=== PATIENT | female | born 1960 | race Caucasian/White ===

== ENCOUNTER 2020-06-14 22:23 | Emergency (ER) | payer OTHER ==
[~2020-06-14] VITALS: Ht 175.3 cm; Wt 121.1 kg
[2020-06-14 22:41] VITALS: BP_SYST 135
[2020-06-14] MEDS ORDERED: INSULIN REGULAR, HUMAN 10 UNITS/0.1 ML INJ IVP ONE (23:00)
[2020-06-14 23:18] LABS: BASOPHILS % (AUTO) 0.7 % (0.0-2.0); EOSINOPHILS # (AUTO) 0.1 K/uL (0.0-0.4); EOSINOPHILS % (AUTO) 1.7 % (0.0-4.0); HEMOGLOBIN 11.1 g/dL (12.0-16.0); LYMPHOCYTES # (AUTO) 0.7 K/uL (1.0-5.5); MEAN CORPUSCULAR HEMOGLOBIN 28 pg (27-31); MEAN CORPUSCULAR HGB CONC 32 % (32-36); MEAN CORPUSCULAR VOLUME 87 fL (79.0-98.0); MONOCYTES # (AUTO) 0.3 K/uL (0.0-1.0); MONOCYTES % (AUTO) 6.7 % (1.7-9.3); NEUTROPHILS # (AUTO) 3.2 K/uL (1.8-7.7); NEUTROPHILS % (AUTO) 73.9 % (40.0-70.0); PLATELET COUNT (AUTO) 88 K/uL (130-430); RED BLOOD CELL COUNT(AUTO) 4.05 MIL/uL (4.2-6.2); RED CELL DISTRIBUTION WIDTH 16.8 % (9.0-15.0); WHITE BLOOD COUNT (AUTO) 4.3 K/uL (4.8-10.8)
[2020-06-14 23:42] LABS: ALBUMIN 2.9 g/dL (3.4-4.8); CREATININE 1.89 mg/dL (0.55-1.30); POTASSIUM 4.4 mmol/L (3.5-5.1); TOTAL BILIRUBIN 0.5 mg/dL (0.0-1.0)
[2020-06-14 23:48] LABS: CALCIUM 13.8 mg/dL (8.4-11.0)
[2020-06-15] MEDS ORDERED: TOP25 PO (00:09)
[2020-06-15] MEDS ORDERED: FURO-150 PO (00:12)
[2020-06-15] MEDS ORDERED: METO25TA6 PO (00:12)
[2020-06-15] MEDS ORDERED: QUET50TA PO (00:12)
[2020-06-15] MEDS ORDERED: INSU100V7 SUBCUT ×2 (00:23→00:24)
[2020-06-15] MEDS ORDERED: HYDR-3698 PO (00:23)
[2020-06-15] MEDS ORDERED: ROSU10TA2 PO (00:23)
[2020-06-15] MEDS ORDERED: ASPI-1155 PO (00:23)
[2020-06-15] MEDS ORDERED: SYN50 PO (00:23)
[2020-06-15] MEDS ORDERED: SERT25TA PO (00:23)
[2020-06-15] MEDS ORDERED: CYAN250014 PO (00:23)
[2020-06-15] MEDS ORDERED: DIVA-74 PO (00:23)
[2020-06-15] MEDS ORDERED: TRAM50TA2 PO (00:23)
[2020-06-15] MEDS ORDERED: INSU500I SQ (00:24)
[2020-06-15] MEDS ORDERED: NACL 0.9% 1,000 ML IV ONE (00:45)
[2020-06-15 01:50] LABS: BILIRUBIN,URINE NEGATIVE (NEGATIVE); BLOOD, URINE 1+ (NEGATIVE); CLARITY/URINE SL CLOUDY (CLEAR); COLOR,URINE YELLOW (YELLOW); GLUCOSE,URINE TRACE (NEGATIVE); KETONES,URINE NEGATIVE (NEGATIVE); LEUKOCYTE ESTERASE ,URINE 1+ (NEGATIVE); NITRITE, URINE NEGATIVE (NEGATIVE); PROTEIN URINE NEGATIVE (NEGATIVE); UROBILINOGEN,URINE 0.2 (0.2-1.0)
[2020-06-15 02:14] LABS: BACTERIA,URINE MODERATE /HPF (None Seen)
[2020-06-15 02:55] VITALS: BP_SYST 164
== END 2020-06-15 02:55 | disposition short-term general hospital (02) ==
LOC: SED 22:23
DX: E11.65 Type 2 diabetes mellitus with hyperglycemia (principal); E83.52 Hypercalcemia; R41.82 Altered mental status, unspecified; Z88.0 Allergy status to penicillin; Z88.8 Allergy status to other drugs, medicaments and biological substances; Z88.2 Allergy status to sulfonamides; Z79.4 Long term (current) use of insulin; Z79.82 Long term (current) use of aspirin; Z79.899 Other long term (current) drug therapy
CPT/HCPCS: 36415; 70450; 71045; 72125; 72192; 80053; 81000; 82962; 84484; 85025; 87040; 87086; 96361; 96374; 99285; J1815; J7030